=== PATIENT | female | born 1960 | race Caucasian/White ===

== ENCOUNTER 2021-02-22 01:26 | Inpatient (IN) | payer OTHER ==
[~2021-02-22] VITALS: Ht 149.9 cm; Wt 43.7 kg
--- NOTE | 2021-02-22 01:35 | NUR ---
Dr. Friedman at bedside for MSE.
[2021-02-22] MEDS ORDERED: CLONIDINE HCL 0.1 MG TABLET PO ONE (01:45)
[2021-02-22] MEDS ORDERED: CLONIDINE HCL 0.1 MG TABLET ONE (02:00)
[2021-02-22 02:05] LABS: MEAN CORPUSCULAR HEMOGLOBIN 33.4 uug (24.7-32.8); MEAN CORPUSCULAR VOLUME 97.8 fL (75.5-95.3); PLATELET COUNT (AUTO) 397 K/uL (179-408)
--- NOTE | 2021-02-22 02:09 | NUR ---
Xray at bedside.
[2021-02-22 02:16] LABS: CREATININE 3.4 mg/dL (0.6-1.3); POTASSIUM 4.1 mmol/L (3.5-5.1)
[2021-02-22 02:26] LABS: BILIRUBIN,DIRECT 0.1 mg/dL (0.0-0.2); BILIRUBIN,TOTAL 0.2 mg/dL (0.2-1.0); TOTAL PROTEIN, SERUM 7.6 g/dL (6.4-8.2)
[2021-02-22] MEDS ORDERED: DEXTROSE 50% 50 ML DISP.SYRIN IV ONE (02:30)
[2021-02-22] MEDS ORDERED: DEXTROSE 50% 50 ML DISP.SYRIN ONE (02:33)
--- NOTE | 2021-02-22 03:04 | NUR ---
Paged Epic panel, waiting for Dr Cash to call back.
--- NOTE | 2021-02-22 03:08 | NUR ---
Dr Friedman spoke with Dr Cash Epic panel reservations and ticketing agent.
--- NOTE | 2021-02-22 03:10 | NUR ---
Dr Friedman spoke with dr Le for olive grader consult.
[2021-02-22 03:56] LABS: *BILIRUBIN,URIN NEGATIVE (NEGATIVE); *BLOOD, URINE 1+ (NEGATIVE); *CLARITY,URINE CLEAR (CLEAR); *COLOR,URINE YELLOW (YELLOW); *KETONES,URINE NEGATIVE (NEGATIVE); *UROBILINOGEN,URINE 0.2 E.U./dl (NORMAL); LEUKOCYTE ESTERASE ,URINE NEGATIVE (NEGATIVE); NITRITE, URINE NEGATIVE (NEGATIVE); PH,URINE 8.5 (5.0-8.0); UGLUCOSE NEGATIVE (NEGATIVE)
[2021-02-22] MEDS ORDERED: DEXTROSE 50% 50 ML DISP.SYRIN IV PRN (04:00)
[2021-02-22] MEDS ORDERED: MAGNESIUM HYDROXIDE 30 ML LIQUID UDC PO PRN (04:00)
[2021-02-22] MEDS ORDERED: ACETAMINOPHEN 325 MG TABLET PO PRN (04:00)
[2021-02-22] MEDS ORDERED: Z GUARD REMEDY PASTE 57 GM TUBE TOP PRN (04:00)
[2021-02-22] MEDS ORDERED: ONDANSETRON 4 MG/2 ML VIAL IV PRN (04:00)
[2021-02-22 04:26] LABS: BACTERIA,URINE NONE SEEN /HPF (NONE SEEN); SQUAMOUS EPITHELIAL CELL,UR FEW /HPF (NONE SEEN)
[2021-02-22] MEDS: hydrALAZINE HCL 20 MG/1 ML VIAL IV PRN (08:07)
[2021-02-22] MEDS ORDERED: hydrALAZINE HCL 20 MG/1 ML VIAL ONE ×2 (08:11→14:31)
[2021-02-22] MEDS: BLOOD SUGAR DIAGNOSTIC 1 EACH STRIP VI SCH ×4 (08:27→21:54)
--- NOTE | 2021-02-22 08:34 | NUR ---
BREAKFAST TRAY PROVIDED. PT EATING WITH GOOD APETITE.
--- NOTE | 2021-02-22 08:53 | NUR ---
CALLED PT'S HOME AT [phone], TALKED TO MOTHER. MOTHER SAID THAT IT IS HARD FOR HER TO SPEAK [place], GAVE PT'S BROTHER CELL PHONE, , CARLOS MANUEL. CONTACTED CARLOS MANUEL, CARLOS MANUEL WILL CONTACT US.
--- NOTE | 2021-02-22 08:58 | NUR ---
CARLOS MANUEL, PT'S BROTHER CONTACTED AND VERIFIED THAT THE PT HAS NKA, AND IS FULLY VACCINATED. CARLOS MANUEL WILL CONTACT AGAIN FOR MED LIST.
[2021-02-22] MEDS: AMLODIPINE 10 MG TABLET PO SCH (09:22)
[2021-02-22] MEDS ORDERED: AMLODIPINE 5 MG TABLET ONE (09:27)
[2021-02-22] MEDS: LOSARTAN POTASSIUM 50 MG TABLET PO SCH (09:27)
--- NOTE | 2021-02-22 11:11 | NUR ---
pt watching tv, no sign of distress. have not heard from brother yet for med list.
[2021-02-22] MEDS: INSULIN REGULAR, HUMAN 300 UNIT/3 ML VIAL SQ PRN (11:51)
[2021-02-22] MEDS ORDERED: INSULIN REGULAR, HUMAN 300 UNIT/3 ML VIAL ONE (11:55)
[2021-02-22] MEDS: hydrALAZINE HCL 50 MG TABLET PO SCH ×2 (14:24→22:22)
--- NOTE | 2021-02-22 17:30 | NUR ---
trnasfered pt to floor in stable condition, hospital tray sent with pt upstairs.
--- NOTE | 2021-02-22 19:00 | NUR ---
Received patient awake lying in bed watching Tv. Has cognitive impairment, but follows commands. Shows no signs of pain or distress. Vitals signs taken and recorded are are within normal limits. asymptomatic of any diabetic crisis.
[2021-02-22 20:21] VITALS: BP 138/63
--- NOTE | 2021-02-22 21:00 | NUR ---
Accu-check done 173 and covered per sliding scale 3 units, no signs and symptoms of any diabetic crisis. HS snacks given. On tele Sinus rythm 73. Ambulatory and able to use restroom. Encouragement to use call light when needed. Assisted with HS care.
[2021-02-22] MEDS: INSULIN REGULAR, HUMAN 300 UNITS/3 ML VIAL SQ PRN (21:57)
--- NOTE | 2021-02-23 | NUR ---
Perma cath on the right chest wall, dialysis on monday, , and monday. BP is with in normal limits. IV on right forearm, saline lock. Is compliant with care. Kept comfortable and safe.
[2021-02-23 00:06] VITALS: BP 155/72
--- NOTE | 2021-02-23 03:00 | NUR ---
Patient sleeping soundly. Sinus rhythm 68 on tele monitor. On 3L NC saturating 99%. No signs of pain or distress. Call light within reach, bed in the lowest position, 2 side-rails up for safety.
[2021-02-23 04:00] VITALS: BP 117/63
[2021-02-23] MEDS: hydrALAZINE HCL 50 MG TABLET PO SCH ×3 (06:00→21:54)
--- NOTE | 2021-02-23 06:00 | NUR ---
BP 171/76 and HR 107, administered PRN 20mg/mL IV Hydralazine. No signs and symptoms of dizziness, distress, or pain. Will continue to monitor vital signs.
[2021-02-23] MEDS: hydrALAZINE HCL 20 MG/1 ML VIAL IV PRN (06:01)
[2021-02-23] MEDS: BLOOD SUGAR DIAGNOSTIC 1 EACH STRIP VI SCH ×4 (06:33→21:00)
[2021-02-23 06:44] LABS: HEMATOCRIT 28.2 % (31.2-41.9); MEAN CORPUSCULAR HEMOGLOBIN 33.3 uug (24.7-32.8); MEAN CORPUSCULAR VOLUME 99.2 fL (75.5-95.3); PLATELET COUNT (AUTO) 346 K/uL (179-408)
--- NOTE | 2021-02-23 06:58 | NUR ---
Endorsed to AM shift. Appears to be sleeping soundly, no acute distress noted. Accucheck done 104. BP re-checked 130/65. Dr. Mora (Renal) in to ascertain patient.
[2021-02-23 07:08] LABS: BILIRUBIN,TOTAL 0.3 mg/dL (0.2-1.0); MAGNESIUM 2.6 mg/dL (1.8-2.4); PHOSPHOROUS 6.8 mg/dL (2.5-4.9); TOTAL PROTEIN, SERUM 6.1 g/dL (6.4-8.2)
[2021-02-23 07:57] LABS: THYROID STIMULATING HORMONE 0.056 mIU/mL (0.358-3.740)
[2021-02-23] MEDS ORDERED: CEFTRIAXONE 1 G in IV DEXTROSE 5% 50 ML IV SCH (08:00)
[2021-02-23] MEDS ORDERED: AZITHROMYCIN IV 250 MG in IV DEXTROSE 5% 250 ML IV SCH (09:00)
--- NOTE | 2021-02-23 09:00 | NUR ---
Pt iv infiltrated. IV site on right FA swollen ice appled and iv taken out. Pt hard stick Attempted x 2 IV unsuccessful. Midline nurse to insert midline ETA @ 6pm per nursing wet room supervisor.
[2021-02-23] MEDS: METOPROLOL TARTRATE 50 MG TABLET PO SCH ×2 (09:08→21:42)
[2021-02-23] MEDS: AMLODIPINE 10 MG TABLET PO SCH (09:08)
[2021-02-23] MEDS: LOSARTAN POTASSIUM 50 MG TABLET PO SCH (09:14)
[2021-02-23 12:00] VITALS: BP 142/64
--- NOTE | 2021-02-23 12:00 | NUR ---
Pharmacy called stated that pt's home meds not reconciled . Contacted Ryan pt's brother. Gave med list by ryan but he doesnt know the dosage of each meds and it's frequency. Called [facility] at [facility] [place] - spoke with pharmacist and verified each meds. Updated home meds list in computer and notified dr IRAJ cervantes that medications needs to be reconciled.
[2021-02-23] MEDS ORDERED: ATOR40TA PO (12:20)
[2021-02-23] MEDS ORDERED: ZOLP5TAB2 PO ×2 (12:20→12:23)
[2021-02-23] MEDS ORDERED: APIX2.5T PO ×2 (12:20)
[2021-02-23] MEDS ORDERED: ASPI81TA31 PO (12:20)
[2021-02-23] MEDS ORDERED: NIFE60TA72 PO (12:20)
[2021-02-23] MEDS ORDERED: LOSA100T31 PO (12:20)
[2021-02-23] MEDS ORDERED: METF-494 PO (12:20)
[2021-02-23] MEDS ORDERED: LORA-258 PO (12:20)
[2021-02-23] MEDS ORDERED: PANT40TA2 PO (12:20)
[2021-02-23] MEDS ORDERED: METF-440 PO (12:39)
[2021-02-23] MEDS: INSULIN REGULAR, HUMAN 300 UNIT/3 ML VIAL SQ PRN (14:16)
[2021-02-23] MEDS ORDERED: LEVO75TA7 PO (15:07)
[2021-02-23] MEDS ORDERED: METO-358 PO (15:08)
[2021-02-23] MEDS ORDERED: OLAN5TAB70 PO (15:08)
[2021-02-23] MEDS ORDERED: INSU100I26 SQ (15:09)
[2021-02-23 16:00] VITALS: BP 132/69
--- NOTE | 2021-02-23 18:30 | NUR ---
Pt has good appetite. pt is in no acute distress. Call light is within reach.
[2021-02-23 21:59] VITALS: BP 148/64
[2021-02-23] MEDS ORDERED: levoFLOXacin 250 MG TABLET PO SCH (22:15)
--- NOTE | 2021-02-23 23:15 | NUR ---
Patient in bed awake ,has developmental delayed but able to follow simple commands .O2 at 2LPM via NC saturation at 98%.No s/s of distress noted.Perma cath intact on right upper chest wall. Reinforced dressing.Received call from patient's brother Ryan to informed that patient has a scheduled appt for her fistula insertion on 03/08/2020 with . Colby Downey seen and examined patient and Colby Henson with new order received .ATb Iv was changed to Levaquin p.o.Patient compliant with medication and tx.Call light with in reach. Will continue to monitor
[2021-02-23] MEDS: INSULIN REGULAR, HUMAN 300 UNITS/3 ML VIAL SQ PRN (23:16)
[2021-02-24] MEDS ORDERED: levoFLOXacin 250 MG TABLET ONE (00:39)
[2021-02-24 04:00] VITALS: BP 145/58
[2021-02-24] MEDS: hydrALAZINE HCL 50 MG TABLET PO SCH ×3 (05:38→21:08)
[2021-02-24] MEDS: PANTOPRAZOLE SODIUM 40 MG TABLET.DR PO SCH (06:17)
[2021-02-24] MEDS: BLOOD SUGAR DIAGNOSTIC 1 EACH STRIP VI SCH ×4 (06:48→21:13)
[2021-02-24 07:18] LABS: HEMATOCRIT 29.9 % (31.2-41.9); MEAN CORPUSCULAR HEMOGLOBIN 33.3 uug (24.7-32.8); PLATELET COUNT (AUTO) 393 K/uL (179-408)
[2021-02-24 07:42] LABS: CREATININE 5.7 mg/dL (0.6-1.3); PHOSPHOROUS 6.2 mg/dL (2.5-4.9); POTASSIUM 4.9 mmol/L (3.5-5.1)
--- NOTE | 2021-02-24 08:50 | NUR ---
Hold BP meds in the am, on going dialysis. Consent for dialysis signed by the brother Ryan. Will continue to monitor.
[2021-02-24] MEDS: METOPROLOL TARTRATE 50 MG TABLET PO SCH ×2 (09:00→12:17)
[2021-02-24] MEDS: LOSARTAN POTASSIUM 50 MG TABLET PO SCH ×2 (09:00→12:19)
[2021-02-24] MEDS: AMLODIPINE 10 MG TABLET PO SCH ×2 (09:00→12:19)
[2021-02-24 12:00] VITALS: BP 158/88
--- NOTE | 2021-02-24 12:20 | NUR ---
AM bp meds given as ordered. Latest BP after dialysis is 178/88 HR 83. Will continue to monitor.
[2021-02-24 16:38] VITALS: BP 150/70
[2021-02-24] MEDS: INSULIN REGULAR, HUMAN 300 UNIT/3 ML VIAL SQ PRN ×2 (16:46→21:27)
[2021-02-24 21:17] VITALS: BP 141/61
[2021-02-25 04:16] VITALS: BP 154/69
[2021-02-25] MEDS: PANTOPRAZOLE SODIUM 40 MG TABLET.DR PO SCH (06:08)
[2021-02-25] MEDS: hydrALAZINE HCL 50 MG TABLET PO SCH ×2 (06:09→14:07)
[2021-02-25] MEDS: BLOOD SUGAR DIAGNOSTIC 1 EACH STRIP VI SCH ×2 (06:10→12:02)
--- NOTE | 2021-02-25 06:32 | NUR ---
Patient remained stable during the shift. No distress identified. No pain or discomfort noted. All due meds given, all needs attended. Kept call light within reach. Safety measures maintained. Will endorse for continuity of care.
[2021-02-25 06:43] LABS: HEMATOCRIT 29.7 % (31.2-41.9); MEAN CORPUSCULAR HEMOGLOBIN 33.9 uug (24.7-32.8); MEAN CORPUSCULAR VOLUME 99.6 fL (75.5-95.3); PLATELET COUNT (AUTO) 377 K/uL (179-408)
[2021-02-25 07:06] LABS: HEPATITIS B SURFACE AG Negative (Negative)
[2021-02-25 07:23] LABS: CREATININE 4.3 mg/dL (0.6-1.3); MAGNESIUM 2.5 mg/dL (1.8-2.4); PHOSPHOROUS 4.7 mg/dL (2.5-4.9); POTASSIUM 4.2 mmol/L (3.5-5.1)
[2021-02-25] MEDS: METOPROLOL TARTRATE 50 MG TABLET PO SCH (08:59)
[2021-02-25 11:21] VITALS: BP 165/69
[2021-02-25] MEDS ORDERED: LEVO500T90 PO (11:36)
[2021-02-25] MEDS: INSULIN REGULAR, HUMAN 300 UNIT/3 ML VIAL SQ PRN (12:07)
--- NOTE | 2021-02-25 15:30 | NUR ---
Discharged patient to home. On room air. No signs of acute distress. Patient denied pain/ discomfort. Belongings accounted for. IV access removed. ID armband removed. Patient left hospital via ambulance.
[2021-02-25 15:33] VITALS: BP 156/74
== END 2021-02-25 15:25 | disposition home or self-care (01) | DRG 194 ==
LOC: ER 01:29 → TRANSITION 07:56 → TELE3 17:55 → MEDSURG3 02-23 18:10
PROVIDERS: ADMIT Internal Medicine; ATTEND Internal Medicine
PROC: 5A1D70Z Performance of Urinary Filtration, Intermittent, Less than 6 Hours Per Day (ICD-10-PCS; principal; 2021-02-24)
DX: I13.2 Hypertensive heart and chronic kidney disease with heart failure and with stage 5 chronic kidney disease, or end stage renal disease (principal); G92.8 Other toxic encephalopathy; E43 Unspecified severe protein-calorie malnutrition; J18.9 Pneumonia, unspecified organism; E11.649 Type 2 diabetes mellitus with hypoglycemia without coma; I27.20 Pulmonary hypertension, unspecified; N18.6 End stage renal disease; I50.33 Acute on chronic diastolic (congestive) heart failure; I16.0 Hypertensive urgency; E11.22 Type 2 diabetes mellitus with diabetic chronic kidney disease; Z20.822 Contact with and (suspected) exposure to COVID-19; Z68.1 Body mass index [BMI] 19.9 or less, adult; R74.01 Elevation of levels of liver transaminase levels; F79 Unspecified intellectual disabilities; Z90.49 Acquired absence of other specified parts of digestive tract; Z99.2 Dependence on renal dialysis; Z79.899 Other long term (current) drug therapy; Z79.84 Long term (current) use of oral hypoglycemic drugs; Z79.01 Long term (current) use of anticoagulants; Z79.82 Long term (current) use of aspirin
CPT/HCPCS: 36415; 51702; 70030-TC; 71045; 83735; 84100; 84443; 85025; 85730; 86706; 87040; 87086; 87340; 93005; 93307; A4663; C1758; G0378; J0360; J0456; J0696; J1815; J3490; J7030; J7050; J7060; U0003